=== PATIENT | male | born 1970 | race African-American/Black ===

== ENCOUNTER 2017-09-30 18:40 | Emergency (ER) | payer BC ==
--- NOTE | 2017-09-30 18:45 | PDOC ---
Attending Attestation - Resident Resident Name: Nilson Jiménez - ED Attending Attestation I have performed the following: I have examined & evaluated the patient, The case was reviewed & discussed with the resident, I agree w/resident's findings & plan, Exceptions are as noted - HPI HPI: 09/30/17 18:43 39-year-old male no past medical history here today with a dog bite to his left calf - Physicial Exam PE: 09/30/17 18:43 Awake alert no acute distress. Lungs are clear bilaterally. Heart is regular without any murmurs rubs or gallops. Left posterior calf with a superficial abrasion bite liliana. No surrounding erythema no drainage no active bleeding distally neurovascularly intact neuro alert oriented 3 gait normal - Medical Decision Making 09/30/17 18:44 39-year-old male status post dog bite. 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 The bite was provoked as it appears the dog was protecting a child in his yard. Plan treat and back prophylaxis with Augmentin tetanus and follow-up with PCP warning signs for infection given to the patient recommend daily soaks <Ya Watson - Last Filed: 09/30/17 18:43> - HPI HPI: 09/30/17 19:04 The patient is a 47 year old male with no significant PMH who presents to the emergency department with a left leg dog bite earlier today. The patient reports that he was walking up the stairs to his home when he got bit by his neighbor's dog. The patient reports that the neighbor was out walking the dog and their children. The patient reports that he proceeded to walk up the stairs behind the neighbors child when the dog jumped across and bit him behind his left leg. The patient reports that the neighbor reports that the dog iss up tp date on immunizations. He denies any numbness, weakness, or tingling sensation. He denies any other symptoms. He denies fever, chills, nausea, vomit, diarrhea, constipation or urinary symptoms. The patient denies chest pain, shortness of breath, headache and dizziness. The patient denies any other complaints. Documentation prepared by Jojo Kraus, acting as medical transcription supervisor for Ya Watson MD. <Jojo Kraus - Last Filed: 09/30/17 19:04>
[2017-09-30] MEDS ORDERED: DIPHTH,PERTUSS(ACELL),TET 0.5 ML DISP.SYRIN IM ONE (18:46)
[2017-09-30 18:49] VITALS: BP 128/83; PULSE 96; TEMP 97.9; BMI 29.0
--- NOTE | 2017-09-30 18:52 | PDOC ---
History of Present Illness - General Chief Complaint: Bite Stated Complaint: DOG BITE LEFT LEG Time Seen by Provider: 09/30/17 18:42 - History of Present Illness Initial Comments: 09/30/17 18:47 47 yo M w/ HTN is here after being bit by a dog in the left calf. 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 He contacted the dog scrum product owner who said the dog is fully vaccinated. He came here bc Verjose guadalupeon asked him to get an incident report from the ER. He is not in any pain. He does not know when his last tetanus shot was. Denies recent fevers or infections. 09/30/17 18:47 09/30/17 18:50 09/30/17 19:01 Past History - Past Medical History Allergies/Adverse Reactions: Allergies Allergy/AdvReac Type Severity Reaction Status Date / Time ANESTHESIA Allergy Uncoded 09/30/17 18:42 Home Medications: Ambulatory Orders Amlodipine Besylate mg PO DAILY 09/30/17 Amoxicillin/Potassium Clav [Augmentin 875-125 Tablet] 1 each PO BID 7 Days #14 tablet 09/30/17 Carvedilol [Coreg] mg PO BID 09/30/17 Valsartan mg PO DAILY 09/30/17 HTN: Yes Review of Systems - Review of Systems Comments:: 09/30/17 18:52 SKIN: Positive: Puncture wound from dog bite Absent: rash, itching, pallor CONSTITUTIONAL: Absent: fever, chills, diaphoresis, generalized weakness, malaise, loss of appetite HEENT: Absent: rhinorrhea, nasal congestion, throat pain, throat swelling, difficulty swallowing, mouth swelling, ear pain, eye pain, visual Changes CARDIOVASCULAR: Absent: chest pain, syncope, palpitations, irregular heart rate, lightheadedness , peripheral edema RESPIRATORY: Absent: cough, shortness of breath, dyspnea with exertion, orthopnea, wheezing, stridor, hemoptysis GASTROINTESTINAL: Absent: abdominal pain, abdominal distension, nausea, vomiting, diarrhea, constipation, melena, hematochezia GENITOURINARY: Absent: dysuria, frequency, urgency, hesitancy, hematuria, flank pain, genital pain MUSCULOSKELETAL: Absent: myalgia, arthralgia, joint swelling HEMATOLOGIC/IMMUNOLOGIC: Absent: easy bleeding, easy bruising, lymphadenopathy, frequent infections ENDOCRINE: Absent: unexplained weight gain, unexplained weight loss, heat intolerance, cold intolerance NEUROLOGIC: Absent: headache, focal weakness or paresthesias, dizziness, unsteady gait, seizure, mental status changes, bladder or bowel incontinence PSYCHIATRIC: Absent: anxiety, depression, suicidal or homicidal ideation, hallucinations. *Physical Exam - Physical Exam Comments: 09/30/17 18:53 Left Calf: There are 2 puncture wounds from the dog bite. They are not tender or erythematous. There is no swelling. He has full strength in the left calf and no TTP. There is full sensation. MUSCULOSKELETAL Normal range of motion at all joints. No bony deformities or tenderness. No CVA tenderness. SKIN: Warm and dry. Normal capillary refill. No rashes. No jaundice. EXTREMITIES: No cyanosis. No clubbing. No edema. No calf tenderness. GENERAL: Well developed, well nourished. Awake and alert. No acute distress. HEENT: Normocephalic, atraumatic. PERRLA, EOMI. No conjunctival pallor. Sclera are non- icteric. Moist mucous membranes. Oropharynx is clear. NECK: Supple. Full ROM. No JVD. Carotid pulses 2+ and symmetric, without bruits. No thyromegaly. No lymphadenopathy. CARDIOVASCULAR: Regular rate and rhythm. No murmurs, rubs, or gallops. Distal pulses are 2+ and symmetric. PULMONARY: No evidence of respiratory distress. Lungs clear to auscultation bilaterally. No wheezing, rales or rhonchi. ABDOMINAL: Soft. Non-tender. Non-distended. No rebound or guarding. No organomegaly. Normoactive bowel sounds. NEUROLOGICAL: Alert, awake, appropriate. Cranial nerves 2-12 intact. No deficits to light touch and temperature in face, upper extremities and lower extremities. No motor deficits in the in face, upper extremities and lower extremities. Normoreflexic in the upper and lower extremities. Normal speech. Toes are down- going bilaterally. Gait is normal without ataxia. PSYCHIATRIC: Cooperative. Good eye contact. Appropriate mood and affect. 09/30/17 18:56 ED Treatment Course - RADIOLOGY Radiology Studies Ordered: Category Date Time Status LEG TIB/FIB-LEFT [RAD] Stat Radiology 09/30/17 18:44 Ordered Medical Decision Making - Medical Decision Making 09/30/17 18:57 47 yo M w HTN here S/P dog bite. Wound does not seem to be infected. He has full strength, sensation, ROM, no erythema, no swelling. Plan: Xray to assess for foreign body, update tetanus shot, Augmentin twice a day for one week. 09/30/17 19:05 *DC/Admit/Observation/Transfer Diagnosis at time of Disposition: Dog bite - Discharge Dispostion Disposition: HOME Condition at time of disposition: Stable Decision to Admit order: No - Prescriptions Prescriptions: Amoxicillin/Potassium Clav [Augmentin 875-125 Tablet] 1 each PO BID 7 Days #14 tablet - Referrals - Patient Instructions Printed Discharge Instructions: How to Care for a Domestic Animal Bite Additional Instructions: Wash the wound twice a day. Take the Augmentin twice a day, once in morning and again in the evening for the next week. Come back to the ER if you develop a fever, the wound gets worse and starts to become red or swollen, or if you develop alot of pain in your calf. - Post Discharge Activity
[2017-09-30] MEDS ORDERED: AMOX TR/POT CLAV 875MG/125MG TABLETS (FP) ONE (19:28)
[2017-09-30] MEDS ORDERED: AMOX TR/POT CLAV 875MG/125MG TABLETS (FP) PO ONE (19:30)
== END 2017-09-30 19:45 | disposition home or self-care (01) ==
LOC: FER 18:40
PROC: 3E0234Z Introduction of Serum, Toxoid and Vaccine into Muscle, Percutaneous Approach (ICD-10-PCS; principal; 2017-09-30)
DX: S81.852A Open bite, left lower leg, initial encounter (principal); W54.0XXA Bitten by dog, initial encounter; Y93.89 Activity, other specified; Y92.89 Other specified places as the place of occurrence of the external cause; I10 Essential (primary) hypertension
CPT/HCPCS: 73590-TC-LT-FY; 90715; 99283-25